=== PATIENT | female | born 1985 | race African-American/Black ===

== ENCOUNTER 2017-09-22 13:56 | Emergency (ER) | payer SELFPAY ==
[~2017-09-22] VITALS: Ht 157.5 cm; Wt 65.0 kg
[2017-09-22] MEDS ORDERED: METHYLPREDNISOLONE SOD SUCC 125 MG/2 ML VIAL IM STA (16:05)
[2017-09-22] MEDS ORDERED: IPRATROPIUM/ALBUTEROL 0.5-3(2.5)MG/3ML NEB HHN ONE (16:15)
[2017-09-22] MEDS ORDERED: KETOROLAC 60MG/2ML VIAL IM ONE (16:15)
[2017-09-22 18:37] VITALS: BP 119/68
== END 2017-09-22 18:49 | disposition home or self-care (01) ==
LOC: ER 13:56
DX: J45.901 Unspecified asthma with (acute) exacerbation (principal); S90.02XA Contusion of left ankle, initial encounter; V03.00XA Pedestrian on foot injured in collision with car, pick-up truck or van in nontraffic accident, initial encounter; Y93.89 Activity, other specified; Y92.89 Other specified places as the place of occurrence of the external cause
CPT/HCPCS: 71045; 73610; 81025; 94640; 99284; J7620; Z7610; J1885; J2930